=== PATIENT | female | born 1970 | race Caucasian/White ===

== ENCOUNTER 2018-05-01 18:46 | Emergency (ER) | payer OTHER, MEDICAID, SELFPAY ==
[2018-05-01 18:49] VITALS: BP 118/64; PULSE 125; RESP 22; O2SAT 99
--- NOTE | 2018-05-01 18:50 | ED_ITS ---
HPI - Allergic Reaction General Chief complaint: Allergic Reaction Stated complaint: Allergic reaction Time Seen by Provider: 05/01/18 18:50 Source: patient Mode of arrival: EMS Limitations: no limitations History of Present Illness HPI narrative: The patient has a nut allergy. She was at work when she developed allergic symptoms. She developed hoarseness, rash to the face, neck and torso, and felt like she had difficulty breathing. She took Benadryl 100 mg p.o. about 20 min prior to arrival. EMS was called, she received subcutaneous epinephrine, about 10 min prior to arrival. Upon arrival she feels her airway is doing better, but she remains worse and feels like she has tightness in the airway. But she does feel better. She is having no confusion , weakness, chest pain or nausea or vomiting. She has no recent illness. She has had several other events similar to this in her life time. She has never required intubation. Related Data Home Medications Medication Instructions Recorded Confirmed epinephrine [EpiPen 2-Montrell] 0.3 mg IM SEE INSTRUCTIONS 05/01/18 05/01/18 guaifenesin [Mucinex] 600 mg PO Q12H 05/01/18 05/01/18 Previous Rx's Medication Instructions Recorded epinephrine [EpiPen 2-Montrell] 0.3 mg IM Q10M PRN #2 each 05/01/18 prednisone 60 mg PO DAILY #15 tab 05/01/18 Allergies Allergy/AdvReac Type Severity Reaction Status Date / Time NUTS Allergy Unknown Uncoded 01/25/18 12:27 Review of Systems Review of Systems All systems reviewed & are unremarkable except as noted in HPI and below Constitutional Reports as per HPI, Denies chills, Denies fatigue and Denies fever(s) Eyes Denies eye discharge ENT Ears, Nose, Mouth, and Throat: Denies dizziness, Reports throat swelling and Denies tongue swelling Cardiovascular Denies chest pain, Reports rapid heart rate, Denies edema and Reports dyspnea Respiratory Denies chest congestion, Denies cough, Denies hemoptysis and Reports dyspnea Gastrointestinal Gastrointestinal: Denies abdominal pain, Denies nausea and Denies vomiting Musculoskeletal Denies numbness and Reports tingling Neurologic Denies dizziness, Denies numbness and Reports tingling Endocrine Denies fatigue Allergic/Immunologic Reports throat swelling and Denies tongue swelling [facility] Social History Smoking Status: Current every day smoker Exam Initial Vital Signs Initial Vital Signs: Vital Signs Pulse Rate 125 H 05/01/18 18:49 Respiratory Rate 22 05/01/18 18:49 Blood Pressure 118/64 05/01/18 18:49 Pulse Oximetry 99 05/01/18 18:49 Const General: cooperative, well developed and acute distress Nutritional Appearance: well nourished Orientation: alert, awake, oriented x3 and not confused [facility] Head: normal to inspection, normocephalic and atraumatic Face and sinus: erythema and no edema Mouth: lip normal, tongue normal and oropharynx normal (Mild edema to the oropharynx, especially the uvula.) Eyes General: appearance normal, both eyes and all related structures Neck Neck: No JVD Chest Chest: normal inspection of the chest Resp Effort & Inspection: normal respiratory effort, no audible wheezes, not labored and no use of accessory muscles Auscultation: clear to auscultation bilaterally Cardio Rate: tachycardic Rhythm: regular rhythm Heart Sounds: S1 normal and S2 normal GI Inspection: non-distended Palpation: soft, no hepatosplenomegaly and No tender Auscultation: normal bowel sounds Skin General: erythema (Noted across her face, neck, upper chest and upper back, and all extremities.) Lesions: no lesions Neuro General: alert, oriented x3, gait normal and no focal motor deficits Speech: speech normal Course Hospital Course: The patient presented with an obvious allergic reaction. She has generalized erythema. She has hoarseness, and mild airway edema. She is tachycardic, but this may reflect the epinephrine she received. She did show improvement with initial medications received prior to arrival. She was given Solu-Medrol after arrival. At the time of discharge her voice remains a little hoarse. Her vitals are stable, her heart rate is down from 120 to 87. The erythema has resolved. There we deem is almost resolved. There is a slight amount of edema left. Her lungs remain clear to auscultation. She feels well enough to go home and is requesting discharge. Orders Ordered: Discontinued Medications Methylprednisolone (Solu-Medrol 125 Mg Vial) 125 mg IV NOW ONE Stop: 05/01/18 19:18 Last Admin: 05/01/18 19:19 Dose: 125 mg Ondansetron HCl (Zofran) 4 mg IV NOW ONE Stop: 05/01/18 19:18 Last Admin: 05/01/18 19:19 Dose: 4 mg Vital Signs - 8 hr 05/01/18 18:49 05/01/18 19:30 05/01/18 20:02 Pulse Rate 125 H 85 74 Respiratory Rate 22 20 18 Blood Pressure 118/64 Blood Pressure [Left Arm] 113/76 136/66 H Pulse Oximetry 99 99 98 Discharge Plan Departure Patient Disposition: Home, Self-Care Clinical Impression: Allergic reaction Instructions: DI for Food Allergy Activity Restrictions/Additional Instructions: The Benadryl 1 tablet every 6-8 hours until your certain all symptoms have resolved. Prednisone 60 mg daily for 5 days. Return here if symptoms return. I am prescribing an EpiPen. Review instructions beforehand. Keep the [place] where you can retrieve it if needed. Be sure you understand the directions beforehand because she may need to use this very quickly. Prescriptions: New prednisone 20 mg tablet 60 mg PO DAILY Qty: 15 RF: 0 epinephrine [EpiPen 2-Montrell] 0.3 mg/0.3 mL auto-injector 0.3 mg IM Q10M PRN (Reason: hypersensitivity reaction) Qty: 2 RF: 0 No Action epinephrine [EpiPen 2-Montrell] 0.3 MG/0.3 ML auto-injector 0.3 mg IM SEE INSTRUCTIONS RF: 0 guaifenesin [Mucinex] 600 MG tablet extended release 12hr 600 mg PO Q12H RF: 0
[2018-05-01] MEDS: ONDANSETRON 4 MG/2 ML INJ IV (19:19)
[2018-05-01] MEDS: methylPREDNISolone 125 MG/2 ML VIAL IV (19:19)
[2018-05-01 19:30] VITALS: BP 113/76; PULSE 85; RESP 20; O2SAT 99
[2018-05-01 20:02] VITALS: BP 136/66; PULSE 74; RESP 18; O2SAT 98
[2018-05-01 21:13] VITALS: BP 124/74; PULSE 82; RESP 18; O2SAT 99
== END 2018-05-01 21:12 | disposition home or self-care (01) ==
PROVIDERS: Emergency Provider Emergency Medicine
DX: T78.40XA Allergy, unspecified, initial encounter (principal)
CPT/HCPCS: 93005; 96374; 96375; 99282; 99284; J2405; J2930

== ENCOUNTER → 2018-05-16 20:03 | Outpatient (CLI) | payer OTHER, MEDICAID, SELFPAY | PROVIDERS: Visit Provider Physician Assistant | DX: R52 Pain, unspecified (principal) | CPT/HCPCS: 87086 ==

== ENCOUNTER 2018-10-27 19:00 | Emergency (ER) | payer MEDICAID, SELFPAY ==
[2018-10-27 19:07] VITALS: BP 131/78; PULSE 139; RESP 17; TEMP 36.4; O2SAT 98
[2018-10-27] MEDS: methylPREDNISolone 125 MG/2 ML VIAL IV (19:12)
[2018-10-27] MEDS: FAMOTIDINE 20 MG/50 ML PIGGYBACK 200 MG IV (19:12)
--- NOTE | 2018-10-27 19:15 | ED.ALLEREA ---
HPI - Allergic Reaction <ARIN Pérez Last Filed: 10/27/18 21:48> General Chief complaint: Allergic Reaction Stated complaint: Allergic Reaction Time Seen by Provider: 10/27/18 19:10 Source: patient Mode of arrival: EMS Limitations: no limitations History of Present Illness HPI narrative: This 48-year-old female comes to ED via EMS due to allergic reaction. She was dining out at a local restaurant and thinks she was exposed to an allergen such as sesame (allergic to this and all tree nuts). She states that she started to feel facial and lip swelling, tight in the chest and short of breath. She had EpiPen with her and that was injected. She had 50 mg of Benadryl EN route. She is feeling very shaky now, thinks due to epinephrine. She states that her skin is crawling. She does not feel like her face is swollen now, shortness of breath is better, main complaint is itching all over Related Data Home Medications Medication Instructions Recorded Confirmed epinephrine [EpiPen 2-Montrell] 0.3 mg IM SEE INSTRUCTIONS 05/01/18 05/01/18 guaifenesin [Mucinex] 600 mg PO Q12H 05/01/18 05/01/18 Previous Rx's Medication Instructions Recorded epinephrine [EpiPen 2-Montrell] 0.3 mg IM Q10M PRN #2 each 05/01/18 prednisone 60 mg PO DAILY #15 tab 05/01/18 epinephrine [EpiPen 2-Montrell] 0.3 mg IM Q10M PRN #1 each 10/27/18 Allergies Allergy/AdvReac Type Severity Reaction Status Date / Time sesame seed Allergy Severe Anaphylaxis Verified 05/16/18 15:39 NUTS Allergy Unknown Uncoded 01/25/18 12:27 Review of Systems <ARIN Pérez Last Filed: 10/27/18 21:48> Review of Systems ROS Unobtainable: All systems reviewed & are unremarkable except as noted in HPI and below Exam <Sravani Terry PA-C - Last Filed: 10/27/18 21:48> Narrative Exam Narrative: GENERAL APPEARANCE: Patient restless, in NAD, scratching HEENT: PERRL, EOMI, normal oropharynx, no lip swelling NECK: Supple, no masses LUNGS: Clear to auscultation bilaterally. HEART: Rate and rhythm regular without murmur, normal S1 and S2, no S3 or S4. DERMATOLOGIC: Patchy erythema Initial Vital Signs Initial Vital Signs: Vital Signs Temperature 97.6 F 10/27/18 19:07 Pulse Rate 139 H 10/27/18 19:07 Respiratory Rate 17 10/27/18 19:07 Blood Pressure 131/78 10/27/18 19:07 Pulse Oximetry 98 10/27/18 19:07 <Peter Llamas DO - Last Filed: 10/28/18 01:45> Initial Vital Signs Initial Vital Signs: Vital Signs Temperature 97.6 F 10/27/18 19:07 Pulse Rate 139 H 10/27/18 19:07 Respiratory Rate 17 10/27/18 19:07 Blood Pressure 131/78 10/27/18 19:07 Pulse Oximetry 98 10/27/18 19:07 Course <Sravani Terry PA-C - Last Filed: 10/27/18 21:48> Additional Information: Prior to discharge patient states that she is feeling completely back to normal. Skin redness has resolved and she no longer has itching. She has no facial swelling, dyspnea or wheeze. She states this reaction is much less severe than the 1 she had last time she was here. She does not want to take oral steroids and states that she only took a few doses last time because they make her very anxious and she states that she almost got fired from her job. These do not appear needed for this particular episode, but I did caution her that she must return should she start to have any worsening symptoms again and she is agreeable Orders Ordered: Discontinued Medications Famotidine (Pepcid) 20 mg in 50 mls @ 200 mls/hr IV NOW ONE Stop: 10/27/18 19:25 Last Infusion: 10/27/18 19:46 Dose: 200 mls/hr Admin: 10/27/18 19:12 Dose: 200 mls/hr Methylprednisolone (Solu-Medrol 125 Mg Vial) 125 mg IV NOW ONE Stop: 10/27/18 19:12 Last Admin: 10/27/18 19:12 Dose: 125 mg Vital Signs - 8 hr 10/27/18 19:07 10/27/18 20:17 10/27/18 20:40 Temperature 97.6 F Pulse Rate 139 H 84 95 H Respiratory Rate 17 15 14 Blood Pressure 131/78 Blood Pressure [Left Arm] 113/60 118/78 Pulse Oximetry 98 97 97 10/27/18 21:27 Temperature Pulse Rate 89 Respiratory Rate 17 Blood Pressure Blood Pressure [Left Arm] 109/61 Pulse Oximetry 96 <Peter Llamas DO - Last Filed: 10/28/18 01:45> Orders Ordered: Discontinued Medications Famotidine (Pepcid) 20 mg in 50 mls @ 200 mls/hr IV NOW ONE Stop: 10/27/18 19:25 Last Infusion: 10/27/18 19:46 Dose: 200 mls/hr Admin: 10/27/18 19:12 Dose: 200 mls/hr Methylprednisolone (Solu-Medrol 125 Mg Vial) 125 mg IV NOW ONE Stop: 10/27/18 19:12 Last Admin: 10/27/18 19:12 Dose: 125 mg Vital Signs - 8 hr 10/27/18 19:07 10/27/18 20:17 10/27/18 20:40 Temperature 97.6 F Pulse Rate 139 H 84 95 H Respiratory Rate 17 15 14 Blood Pressure 131/78 Blood Pressure [Left Arm] 113/60 118/78 Pulse Oximetry 98 97 97 10/27/18 21:27 Temperature Pulse Rate 89 Respiratory Rate 17 Blood Pressure Blood Pressure [Left Arm] 109/61 Pulse Oximetry 96 Discharge Plan Departure Patient Disposition: Home Clinical Impression: Anaphylaxis Discharge Date/Time: 10/27/18 21:50 Interventions: ED Discharge Assessment Last Done: 10/27/18 21:50 Instructions: DI for Anaphylaxis Activity Restrictions/Additional Instructions: Please return as we talked about if you have any acutely worsening symptoms again. It seems that your itching has resolved, but if you do need additional Benadryl later this evening or in the morning, it is okay to take. Please refill your epi pen so you always have an extra on hand. Prescriptions: New epinephrine [EpiPen 2-Montrell] 0.3 mg/0.3 mL auto-injector 0.3 mg IM Q10M PRN (Reason: nut allergy/anaphylaxis) Qty: 1 RF: 0 No Action epinephrine [EpiPen 2-Montrell] 0.3 MG/0.3 ML auto-injector 0.3 mg IM SEE INSTRUCTIONS RF: 0 guaifenesin [Mucinex] 600 MG tablet extended release 12hr 600 mg PO Q12H RF: 0 prednisone 20 mg tablet 60 mg PO DAILY Qty: 15 RF: 0 epinephrine [EpiPen 2-Montrell] 0.3 mg/0.3 mL auto-injector 0.3 mg IM Q10M PRN (Reason: hypersensitivity reaction) Qty: 2 RF: 0 <Peter Llamas, DO - Last Filed: 10/28/18 01:45> Cosign ED Attending Madeline Attestation: I was immediately available in the department for consultation. Documentation has been reviewed. I agree with assessment and plan.
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
[2018-10-27 20:17] VITALS: BP 113/60; PULSE 84; RESP 15; O2SAT 97
[2018-10-27 20:40] VITALS: BP 118/78; PULSE 95; RESP 14; O2SAT 97
[2018-10-27 21:27] VITALS: BP 109/61; PULSE 89; RESP 17; O2SAT 96
== END 2018-10-27 21:50 | disposition home or self-care (01) ==
PROVIDERS: Emergency Provider Internal Medicine
DX: T78.2XXA Anaphylactic shock, unspecified, initial encounter (principal)
CPT/HCPCS: 96365; 96375; 99283; 99284; J2930

== ENCOUNTER 2019-01-08 17:02 | Emergency (ER) | payer OTHER, MEDICAID, SELFPAY ==
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
[2019-01-08 17:09] VITALS: BP 134/95; PULSE 105; RESP 20; O2SAT 97
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
--- NOTE | 2019-01-08 17:11 | PC.NURSE ---
C collar applied when received the patient
[2019-01-08 17:13] VITALS: BP 134/95; PULSE 105; RESP 20; TEMP 36.1; O2SAT 97
[2019-01-08 17:33] LABS: Add Manual Diff / Slide Review NO; Basophils Absolute Auto 0 /uL (0-100); Basophils Percent Auto 0.5 % (0-2); Eosinophils Absolute Auto 100 /uL (0-450); Eosinophils Percent Auto 0.7 % (2-4); Hematocrit 43.5 % (36-46); Hemoglobin 14.5 g/dL (12.0-16.0); Lymphocytes Absolute Auto 2300 /uL (1100-4500); Lymphocytes Percent Auto 24.8 % (25-40); Mean Corpuscular HGB Conc 33.4 % (30-36); Mean Corpuscular Hemoglobin 33.6 PG (26-34); Mean Corpuscular Volume 100.8 fL (80-100); Monocytes Absolute Auto 400 /uL (0-900); Monocytes Percent Auto 3.9 % (3-14); Neutrophils Absolute Auto 6500 /uL (1500-7000); Neutrophils Percent Auto 70.1 % (50-75); Platelet Count 195 X10^3/uL (150-400); Red Blood Cell Count 4.32 X10^6/uL (4.0-5.2); White Blood Cell Count 9.3 X10^3/uL (4.5-11.0)
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
[2019-01-08 17:40] LABS: INR 0.9 (0.9-1.3); Prothrombin Time 10.7 SECONDS (10.1-12.7)
[2019-01-08 17:42] LABS: PTT Partial Thromboplastin Tim 29 SECONDS (26.4-36.2)
[2019-01-08 17:44] LABS: Bacteria Urine None Seen; WBC Urine None Seen (0-5/HPF)
[2019-01-08 17:55] LABS: Alanine Aminotransferase 30 IU/L (9-52); Albumin 4.5 g/dL (3.5-5.0); Albumin Globulin Ratio 1.4 (1.0-2.8); Alkaline Phosphatase 83 U/L (38-126); Amylase 86 U/L (30-110); Aspartate Aminotransferase 33 IU/L (14-36); BUN Creatinine Ratio 17.1 (6-22); Bilirubin Total 0.4 mg/dL (0.2-1.3); Blood Urea Nitrogen 12 mg/dL (7-17); Calcium 9.1 mg/dL (8.4-10.2); Carbon Dioxide 27 mmol/L (22-32); Chloride 109 mmol/L (98-107); Estimated Glomerular Filt Rate > 60.0 mL/min (>60); Globulin 3.3 g/dL (1.7-4.1); Glucose 97 mg/dL (70-100); HEMOLYSIS 23 (0-50); Lipase 148 U/L (23-300); Potassium 3.6 mmol/L (3.4-5.1); Sodium 144 mmol/L (137-145); Total Protein 7.8 g/dL (6.3-8.2)
[2019-01-08 18:00] VITALS: BP 120/68; PULSE 90; RESP 14; O2SAT 99
[2019-01-08 18:03] LABS: Appearance Urine UA CLEAR; Bilirubin Urine UA NEGATIVE (NEGATIVE); Color Urine UA YELLOW; Glucose Urine UA NEGATIVE (Negative); Ketones Urine UA NEGATIVE (NEGATIVE); Leukocyte Esterase Urine UA NEGATIVE (NEGATIVE); Nitrite Urine UA NEGATIVE (Negative); Occult Blood Urine UA TRACE-LYSED (Negative); Protein Urine UA NEGATIVE (Negative); Specific Gravity Urine UA <=1.005 (1.000-1.035); Urobilinogen Urine UA 0.2 E.U./dL (0.2); pH Urine UA 6.5 (4.5-8.0)
[2019-01-08 18:14] LABS: RBC Urine 1-5/HPF (0-5/HPF)
[2019-01-08 18:31] LABS: Ethanol (ETOH) 293 mg/dL
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
== END 2019-01-08 19:17 | disposition home or self-care (01) ==
PROVIDERS: Emergency Provider Nurse Practitioner Family
DX: S00.81XA Abrasion of other part of head, initial encounter (principal); S60.222A Contusion of left hand, initial encounter; S02.5XXA Fracture of tooth (traumatic), initial encounter for closed fracture; S06.0X0A Concussion without loss of consciousness, initial encounter; F10.920 Alcohol use, unspecified with intoxication, uncomplicated; V29.9XXA Motorcycle rider (driver) (passenger) injured in unspecified traffic accident, initial encounter
CPT/HCPCS: 70450; 70486; 71045; 71260; 72125; 73130; 74177; 80053; 80320; 81001; 82150; 83690; 85025; 85610; 85730; 86850; 86900; 86901; 93005; 99283; 99285

== ENCOUNTER 2019-04-08 18:43 | Emergency (ER) | payer MEDICAID, SELFPAY ==
[2019-04-08 18:40] VITALS: BP 128/82; PULSE 65; RESP 14; TEMP 36.6; O2SAT 95
--- NOTE | 2019-04-08 18:59 | ED_ITS ---
HPI - Alcohol General Chief Complaint: Toxicology Problem Stated Complaint: ETOH Time Seen by Provider: 04/08/19 18:51 Source: patient Mode of arrival: ambulatory Limitations: no limitations History of Present Illness HPI narrative: patient is a 48-year-old female who presents intoxicated. 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 Apparently and a [employer] called EMS for transport to the emergency department. She does have some scratches on her legs but no other signs of trauma. She states her [place] that. She denies drinking every day. She also admits to smoking marijuana about 12 hr ago but denies any other illicit drugs. Apparently her mother is sick and she has been drinking alcohol. She denies any suicidal or homicidal ideations. She states she does not intend to harm herself. MD complaint: alcohol intoxication Last drink: just prior to this admission Related Data Home Medications Medication Instructions Recorded Confirmed guaifenesin [Mucinex] 600 mg PO Q12H 05/01/18 05/01/18 Previous Rx's Medication Instructions Recorded prednisone 60 mg PO DAILY #15 tab 05/01/18 epinephrine [EpiPen 2-Montrell] 0.3 mg IM Q10M PRN #1 each 10/27/18 Allergies Allergy/AdvReac Type Severity Reaction Status Date / Time sesame seed Allergy Severe Anaphylaxis Verified 04/08/19 18:51 NUTS Allergy Unknown Uncoded 01/08/19 17:08 Review of Systems Review of Systems ROS Unobtainable: All systems reviewed & are unremarkable except as noted in HPI and below Constitutional Denies chills, Denies fever(s), Denies lethargy and Denies weakness Eyes Denies change in vision, Denies eye discharge, Denies irritation and Denies loss of vision ENT Ears, Nose, Mouth, and Throat: Denies change in voice, Denies neck pain and Denies sore throat Cardiovascular Denies chest pain, Denies irregular heart rhythm, Denies lightheadedness, Denies palpitations, Denies dyspnea, Denies dyspnea on exertion and Denies orthopnea Respiratory Denies cough, Denies dyspnea, Denies dyspnea on exertion and Denies wheezing Musculoskeletal Denies neck pain Integumentary/Breasts Denies pruritus, Denies erythema, Denies rash and Denies wounds Neurologic Denies confusion, Denies loss of vision and Denies weakness Psychiatric Denies anxiety, Denies confusion, Denies depression, Denies homicidal ideation and Denies suicidal ideation Endocrine Denies palpitations Allergic/Immunologic Denies wheezing [facility] Medical History (Updated 04/08/19 @ 20:30 by Ami Joiner DO) Anaphylaxis (Resolved) Family History Other Family history non-contributory Social History Smoking Status: Former smoker Family History Other Family history non-contributory Social History Smoking Status: Former smoker Exam Initial Vital Signs Initial Vital Signs: Vital Signs Temperature 97.8 F 04/08/19 18:40 Pulse Rate 65 04/08/19 18:40 Respiratory Rate 14 04/08/19 18:40 Blood Pressure 128/82 04/08/19 18:40 Pulse Oximetry 95 04/08/19 18:40 GENERAL: Intoxicated slurring speech HEENT: Head atraumatic, no abrasions no crepitations,EOMI, pupils reactive, face symmetric, neck is supple CARDIOVASCULAR: Regular rate and rhythm without murmurs, rubs or gallops. RESPIRATORY: Breath sounds equal bilaterally, no wheezes rales or rhonchi. ABDOMEN: Soft, nontender. Normoactive bowel sounds all 4 quadrants. No guarding or rebound. EXTREMITIES: Normal range of motion, no clubbing or edema. Neurovascularly intact NEUROLOGICAL: Alert and oriented x3 moving all extremities slurred speech SKIN: superficial scratches on both legs no other sign of trauma no abrasions lacerations Course Orders Ordered: ED Orders 04/08/19 19:20 Urinalysis Sreen (Dip Only) Stat Urine Drug Screen, Rapid Stat 04/08/19 19:45 Acetaminophen Stat Complete Blood Count AUTO DIFF Stat Comprehensive Metabolic Panel Stat Ethanol (ETOH) Stat Hepatic (Liver) Panel Stat Lipase Stat Magnesium Stat Salicylate Stat Vital Signs - 8 hr 04/08/19 18:40 04/08/19 20:20 Temperature 97.8 F Pulse Rate 65 71 Respiratory Rate 14 15 Blood Pressure 128/82 Blood Pressure [Right Arm] 118/71 Pulse Oximetry 95 98 MDM - Alcohol Lab Data Attestation: I reviewed the patient's lab results. Result diagrams: 04/08/19 19:45 04/08/19 19:45 Labs: Lab Results 04/08/19 04/08/19 04/08/19 Range/Units 19:20 19:20 19:45 WBC 7.1 (4.5-11.0) X10^3/uL RBC 4.09 (4.0-5.2) X10^6/uL Hgb 13.6 (12.0-16.0) g/dL Hct 40.9 (36-46) % MCV 99.9 (80-100) fL MCH 33.3 (26-34) PG MCHC 33.4 (30-36) % RDW 13.9 (11.6-14.8) % Plt Count 169 (150-400) X10^3/uL Neut % (Auto) 64.2 (50-75) % Lymph % (Auto) 30.4 (25-40) % Lucas % (Auto) 4.0 (3-14) % Eos % (Auto) 0.8 L (2-4) % Baso % (Auto) 0.6 (0-2) % Neut # (Auto) 4500 (4918-6877) /uL Lymph # (Auto) 2200 (0595-9426) /uL Lucas # (Auto) 300 (0-900) /uL Eos # (Auto) 100 (0-450) /uL Baso # (Auto) 0 (0-100) /uL Sodium (137-145) mmol/L Potassium (3.4-5.1) mmol/L Chloride (98-107) mmol/L Carbon Dioxide (22-32) mmol/L BUN (7-17) mg/dL Creatinine (0.52-1.04) mg/dL Estimated GFR (>60) mL/min BUN/Creatinine Ratio (6-22) Glucose (70-100) mg/dL Calcium (8.4-10.2) mg/dL Magnesium (1.6-2.3) mg/dL Total Bilirubin (0.2-1.3) mg/dL Conjugated Bilirubin (0.0-0.3) md/dL Unconjugated Bilirubin (0.0-1.1) mg/dL AST (14-36) IU/L ALT (9-52) IU/L Alkaline Phosphatase (38-126) U/L Total Protein (6.3-8.2) g/dL Albumin (3.5-5.0) g/dL Globulin (1.7-4.1) g/dL Albumin/Globulin Ratio (1.0-2.8) Lipase (23-300) U/L Urine Color Yellow Urine Appearance Clear Urine pH 7.0 (4.5-8.0) Ur Specific [place] <=1.005 (1.000-1.035) Urine Protein Negative (Negative) Urine Glucose (UA) Negative (Negative) g/dL Urine Ketones Negative (NEGATIVE) Urine Occult Blood 1+ H (Negative) Urine Nitrate Negative (Negative) Urine Bilirubin Negative (NEGATIVE) Urine Urobilinogen 0.2 (0.2) E.U./dL Ur Leukocyte Esterase Negative (NEGATIVE) Salicylates (<20) mg/dL Urine Opiates Screen Negative (Negative) Ur Oxycodone Screen Negative (Negative) Urine Methadone Screen Negative (Negative) Acetaminophen (10-30) ug/mL Ur Barbiturates Screen Negative (Negative) U Tricyclic Antidepress Negative (Negative) Ur Phencyclidine Scrn Negative (Negative) Ur Amphetamines Screen Negative (Negative) U Methamphetamines Scrn Negative (Negative) Ur MDMA Scrn (Ecstasy) Negative (Negative) U Benzodiazepines Scrn Negative (Negative) Urine Cocaine Screen Negative (Negative) U Marijuana (THC) Screen Positive H (Negative) Ethyl Alcohol mg/dL 04/08/19 Range/Units 19:45 WBC (4.5-11.0) X10^3/uL RBC (4.0-5.2) X10^6/uL Hgb (12.0-16.0) g/dL Hct (36-46) % MCV (80-100) fL MCH (26-34) PG MCHC (30-36) % RDW (11.6-14.8) % Plt Count (150-400) X10^3/uL Neut % (Auto) (50-75) % Lymph % (Auto) (25-40) % Lucas % (Auto) (3-14) % Eos % (Auto) (2-4) % Baso % (Auto) (0-2) % Neut # (Auto) (5969-8632) /uL Lymph # (Auto) (0368-9190) /uL Lucas # (Auto) (0-900) /uL Eos # (Auto) (0-450) /uL Baso # (Auto) (0-100) /uL Sodium 147 H (137-145) mmol/L Potassium 3.7 (3.4-5.1) mmol/L Chloride 112 H (98-107) mmol/L Carbon Dioxide 31 (22-32) mmol/L BUN 9 (7-17) mg/dL Creatinine 0.70 (0.52-1.04) mg/dL Estimated GFR > 60.0 (>60) mL/min BUN/Creatinine Ratio 12.9 (6-22) Glucose 102 H (70-100) mg/dL Calcium 9.0 (8.4-10.2) mg/dL Magnesium 2.0 (1.6-2.3) mg/dL Total Bilirubin 0.5 (0.2-1.3) mg/dL Conjugated Bilirubin 0.0 (0.0-0.3) md/dL Unconjugated Bilirubin 0.3 (0.0-1.1) mg/dL AST 30 (14-36) IU/L ALT 23 (9-52) IU/L Alkaline Phosphatase 87 (38-126) U/L Total Protein 6.9 (6.3-8.2) g/dL Albumin 4.0 (3.5-5.0) g/dL Globulin 2.9 (1.7-4.1) g/dL Albumin/Globulin Ratio 1.4 (1.0-2.8) Lipase 99 (23-300) U/L Urine Color Urine Appearance Urine pH (4.5-8.0) Ur Specific [place] (1.000-1.035) Urine Protein (Negative) Urine Glucose (UA) (Negative) g/dL Urine Ketones (NEGATIVE) Urine Occult Blood (Negative) Urine Nitrate (Negative) Urine Bilirubin (NEGATIVE) Urine Urobilinogen (0.2) E.U./dL Ur Leukocyte Esterase (NEGATIVE) Salicylates < 1.0 (<20) mg/dL Urine Opiates Screen (Negative) Ur Oxycodone Screen (Negative) Urine Methadone Screen (Negative) Acetaminophen < 10 L (10-30) ug/mL Ur Barbiturates Screen (Negative) U Tricyclic Antidepress (Negative) Ur Phencyclidine Scrn (Negative) Ur Amphetamines Screen (Negative) U Methamphetamines Scrn (Negative) Ur MDMA Scrn (Ecstasy) (Negative) U Benzodiazepines Scrn (Negative) Urine Cocaine Screen (Negative) U Marijuana (THC) Screen (Negative) Ethyl Alcohol 266 mg/dL MDM Narrative Medical decision making narrative: Patient has no real sign of trauma. She is ambulatory in the ED gait be some steady year. Now requesting to go home. She has called a [employer], her daughter who is not able to drive or ride in a taxicab pick her up and they will go home. Daughter came to the ER patient had a steady gait and walk to the cab Discharge Plan Departure Patient Disposition: Home Clinical Impression: Alcoholic intoxication Qualifiers: Complication of substance-induced condition: uncomplicated Qualified Code(s): F10.920 - Alcohol use, unspecified with intoxication, uncomplicated Discharge Date/Time: 04/08/19 21:13 Interventions: ED Discharge Assessment Last Done: 04/08/19 21:12 Instructions: DI for Alcohol Abuse Activity Restrictions/Additional Instructions: *You have been diagnosed with alcohol intoxication *What to do: Stop drinking alcohol *Continue to take medications as directed *Follow up with your primary care provider in 2-3 days *Return to ER if you should have any new, worsening or concerning symptoms Prescriptions: No Action guaifenesin [Mucinex] 600 MG tablet extended release 12hr 600 mg PO Q12H RF: 0 prednisone 20 mg tablet 60 mg PO DAILY Qty: 15 RF: 0 epinephrine [EpiPen 2-Montrell] 0.3 mg/0.3 mL auto-injector 0.3 mg IM Q10M PRN (Reason: nut allergy/anaphylaxis) Qty: 1 RF: 0 Referrals: [facility] [Outside]
[2019-04-08 19:31] LABS: Appearance Urine UA CLEAR; Bilirubin Urine UA NEGATIVE (NEGATIVE); Color Urine UA YELLOW; Glucose Urine UA NEGATIVE (Negative); Ketones Urine UA NEGATIVE (NEGATIVE); Leukocyte Esterase Urine UA NEGATIVE (NEGATIVE); Nitrite Urine UA NEGATIVE (Negative); Occult Blood Urine UA 1+ (Negative); Protein Urine UA NEGATIVE (Negative); Specific Gravity Urine UA <=1.005 (1.000-1.035); Urobilinogen Urine UA 0.2 E.U./dL (0.2)
[2019-04-08 19:33] LABS: Urine Amphetamines Negative (Negative); Urine Barbiturates Negative (Negative); Urine Benzodiazepines Negative (Negative); Urine Cocaine Negative (Negative); Urine MDMA Negative (Negative); Urine Methadone Negative (Negative); Urine Methamphetamines Negative (Negative); Urine Morphine/Opi cutoff 2000 Negative (Negative); Urine Oxycodone Negative (Negative); Urine Phencyclidine Negative (Negative); Urine Tetrahydrocannabinol Positive (Negative); Urine Tricyclic Antidepressant Negative (Negative)
[2019-04-08 19:56] LABS: Add Manual Diff / Slide Review NO; Basophils Absolute Auto 0 /uL (0-100); Basophils Percent Auto 0.6 % (0-2); Eosinophils Absolute Auto 100 /uL (0-450); Eosinophils Percent Auto 0.8 % (2-4); Hematocrit 40.9 % (36-46); Hemoglobin 13.6 g/dL (12.0-16.0); Lymphocytes Absolute Auto 2200 /uL (1100-4500); Lymphocytes Percent Auto 30.4 % (25-40); Mean Corpuscular HGB Conc 33.4 % (30-36); Mean Corpuscular Hemoglobin 33.3 PG (26-34); Mean Corpuscular Volume 99.9 fL (80-100); Monocytes Absolute Auto 300 /uL (0-900); Neutrophils Absolute Auto 4500 /uL (1500-7000); Neutrophils Percent Auto 64.2 % (50-75); Platelet Count 169 X10^3/uL (150-400); Red Blood Cell Count 4.09 X10^6/uL (4.0-5.2); Red Cell Distribution Width 13.9 % (11.6-14.8); White Blood Cell Count 7.1 X10^3/uL (4.5-11.0)
[2019-04-08 20:08] LABS: Acetaminophen < 10 ug/mL (10-30); Alanine Aminotransferase 23 IU/L (9-52); Albumin Globulin Ratio 1.4 (1.0-2.8); Alkaline Phosphatase 87 U/L (38-126); Aspartate Aminotransferase 30 IU/L (14-36); BUN Creatinine Ratio 12.9 (6-22); Bilirubin Total 0.5 mg/dL (0.2-1.3); Bilirubin Unconjugated 0.3 mg/dL (0.0-1.1); Blood Urea Nitrogen 9 mg/dL (7-17); Carbon Dioxide 31 mmol/L (22-32); Chloride 112 mmol/L (98-107); Estimated Glomerular Filt Rate > 60.0 mL/min (>60); Ethanol (ETOH) 266 mg/dL; Globulin 2.9 g/dL (1.7-4.1); Glucose 102 mg/dL (70-100); HEMOLYSIS < 15 (0-50); Lipase 99 U/L (23-300); Potassium 3.7 mmol/L (3.4-5.1); Salicylate < 1.0 mg/dL (<20); Sodium 147 mmol/L (137-145); Total Protein 6.9 g/dL (6.3-8.2)
[2019-04-08 20:20] VITALS: BP 118/71; PULSE 71; RESP 15; O2SAT 98
== END 2019-04-08 21:13 | disposition home or self-care (01) ==
LOC: ED 21:21
PROVIDERS: Emergency Provider Emergency Medicine
DX: F10.920 Alcohol use, unspecified with intoxication, uncomplicated (principal)
CPT/HCPCS: 36415; 80053; 80076; 80305; 80320; 80329; 81003; 83690; 83735; 85025; 99283; G0480

== ENCOUNTER 2019-08-06 12:25 | Emergency (ER) | payer OTHER, MEDICAID, SELFPAY ==
[2019-08-06 13:06] VITALS: BP 159/99; PULSE 77; RESP 13; TEMP 36.2; O2SAT 99
--- NOTE | 2019-08-06 13:23 | DI.RAD.S_ITS ---
PROCEDURE: XR HIP W PEL IF DONE RT 2V INDICATIONS: fell down 13 steps, point tender over sacrum and right hip. TECHNIQUE: AP pelvis with lateral view(s) of the right hip(s). COMPARISON: None. FINDINGS: Bones: No fractures or dislocations. Pelvic ring appears intact. No suspicious bony lesions. Soft tissues: The visualized bowel gas pattern is normal. No suspicious soft tissue calcifications. IMPRESSION: No visualized acute fracture or dislocation. However, if clinical concern and/or pain persist, short interval imaging followup in 7-10 days is recommended, as occult injury cannot be definitively excluded. Dictated by: Tamra Baxter M.D. on 08/06/2019 at 14:11 Approved by: Tamra Baxter M.D. on 08/06/2019 at 14:15
--- NOTE | 2019-08-06 13:23 | DI.RAD.S_ITS ---
PROCEDURE: XR SACRUM COCCYX MIN 2V INDICATIONS: fell down 13 steps, point tender over sacrum and right hip. TECHNIQUE: 3 views of the sacrum and coccyx acquired. COMPARISON: [facility], CR, XR HIP W PEL IF DONE RT 2V, 08/06/2019, 13:53. FINDINGS: Bones: No fractures or dislocations. No suspicious bony lesions. Soft tissues: Visualized bowel gas pattern is normal. No suspicious soft tissue densities. IMPRESSION: No visualized acute fracture or dislocation. However, if clinical concern and/or pain persist, short interval imaging followup in 7-10 days is recommended, as occult injury cannot be definitively excluded. Dictated by: Tamra Baxter M.D. on 08/06/2019 at 14:15 Approved by: Tamra Baxter M.D. on 08/06/2019 at 14:16
[2019-08-06] MEDS: HYDROCODONE/ACET 5/325 TABLET 2 TAB PO (13:28)
[2019-08-06 13:38] LABS: Add Manual Diff / Slide Review NO; Basophils Absolute Auto 0 /uL (0-100); Basophils Percent Auto 0.5 % (0-2); Eosinophils Absolute Auto 100 /uL (0-450); Eosinophils Percent Auto 0.9 % (2-4); Hematocrit 38.3 % (36-46); Hemoglobin 12.8 g/dL (12.0-16.0); Lymphocytes Absolute Auto 1600 /uL (1100-4500); Lymphocytes Percent Auto 18.6 % (25-40); Mean Corpuscular HGB Conc 33.4 % (30-36); Mean Corpuscular Hemoglobin 34.5 PG (26-34); Mean Corpuscular Volume 103.3 fL (80-100); Monocytes Absolute Auto 500 /uL (0-900); Monocytes Percent Auto 5.6 % (3-14); Neutrophils Absolute Auto 6200 /uL (1500-7000); Neutrophils Percent Auto 74.4 % (50-75); Platelet Count 181 X10^3/uL (150-400); Red Blood Cell Count 3.71 X10^6/uL (4.0-5.2); Red Cell Distribution Width 15.1 % (11.6-14.8); White Blood Cell Count 8.4 X10^3/uL (4.5-11.0)
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
[2019-08-06 13:49] LABS: BUN Creatinine Ratio 23.3 (6-22); Blood Urea Nitrogen 14 mg/dL (7-17); Calcium 9.7 mg/dL (8.4-10.2); Carbon Dioxide 27 mmol/L (22-32); Chloride 103 mmol/L (98-107); Creatine Kinase 76 U/L (30-135); Estimated Glomerular Filt Rate > 60.0 mL/min (>60); Glucose 119 mg/dL (70-100); HEMOLYSIS < 15 (0-50); Potassium 4.3 mmol/L (3.4-5.1); Sodium 137 mmol/L (137-145)
[2019-08-06 13:58] LABS: Ethanol (ETOH) < 10 mg/dL
--- NOTE | 2019-08-06 15:44 | ED.FALL ---
HPI - Fall <NATANAEL Wheeler - Last Filed: 08/06/19 20:13> General Chief Complaint: Fall Stated Complaint: lump on right side buttocks Time Seen by Provider: 08/06/19 13:27 Source: patient Mode of arrival: Ambulatory Limitations: no limitations History of Present Illness HPI Narrative: The patient is a 49-year-old female former smoker with history of excessive drinking who presents with a chief complaint of pain after a fall down stairs. She states that she fell down 13 stairs 15 days ago. That she is out of the modified trauma window of her trauma. She ambulates into the emergency department. She was sent from the walk-in clinic for excessive bruising and a mass on her buttock. She has been using Tylenol and Motrin for pain. Denies any incontinence of bowel, incontinence of bladder or saddle anesthesia. Related Data Previous Rx's Medication Instructions Recorded epinephrine [EpiPen 2-Montrell] 0.3 mg IM Q10M PRN #1 each 10/27/18 hydrocodone-acetaminophen [Vernon] 1 tab PO Q4-6H PRN #7 tab 08/06/19 ketorolac 10 mg PO TID PRN #15 tab 08/06/19 Allergies Allergy/AdvReac Type Severity Reaction Status Date / Time sesame seed Allergy Severe Anaphylaxis Verified 08/06/19 10:59 NUTS Allergy Unknown Uncoded 01/08/19 17:08 Review of Systems <NATANAEL Wheeler - Last Filed: 08/06/19 20:13> Review of Systems Narrative: GENERAL: Denies chills, fatigue, malaise, fever, sweats. HEENT: Denies sinus pain, ear pain, sore throat, difficulty swallowing, dizziness. RESPIRATORY: Denies dyspnea, cough, wheezing, hemoptysis, sputum. CARDIOVASCULAR: Denies chest pain, palpitations, orthopnea, edema, GASTROINTESTINAL: Denies nausea, vomiting, abdominal pain, diarrhea, constipation, melena. : Denies dysuria, frequency, incontinence, hematuria, urinary retention. MUSCULOSKELETAL: See HPI SKIN: See HPI NEUROLOGIC: Denies weakness, headache, numbness, change in speech, confusion, seizures, incoordination. PSYCHIATRIC: No concerning psychosocial issues. 12 point review of systems is negative except for those stated above Patient History <NATANAEL Wheeler - Last Filed: 08/06/19 20:13> Medical History (Updated 08/06/19 @ 15:49 by SANDRO Wheeler) Anaphylaxis (Resolved) Social History Smoking Status: Former smoker alcohol intake frequency: 0-2 drinks per day Substance Use Type: marijuana Exam <SANDRO Wheeler - Last Filed: 08/06/19 20:13> Narrative Exam Narrative: GENERAL: This is a well-nourished, well-developed patient, appears uncomfortable HEAD: Atraumatic. Normocephalic. No temporal or scalp tenderness. EYES: Pupils equal round and reactive. Extraocular motions intact. No scleral icterus. No injection or drainage. ENT: Nose without bleeding, purulent drainage or septal hematoma. Throat without erythema, tonsillar hypertrophy or exudate. Uvula midline. Airway patent. NECK: Trachea midline. No JVD or lymphadenopathy. Supple, nontender, no meningeal signs. CARDIOVASCULAR: Regular rate and rhythm RESPIRATORY: Clear to auscultation. Breath sounds equal bilaterally. No wheezes, rales, or rhonchi. No increased respiratory effort. No accessory muscle use. GASTROINTESTINAL: Abdomen soft, non-tender, nondistended. No hepato-splenomegaly, or palpable masses. No guarding. EXTREMITIES: Patient has diffuse ecchymosis over bilateral buttocks, radiating down both thighs. She has a palpable mass on her right clot talk.. No abrasion. No lacerations noted. BACK: No pain to C T or L spine palpation. Pain to palpation of coccyx and sacrum. NEURO: AOx3. Around the room. Stable gait. Strength is equal upper and lower extremities bilaterally. SKIN: See extremity exam Initial Vital Signs Initial Vital Signs: Vital Signs Temperature 97.2 F L 08/06/19 13:06 Pulse Rate 77 08/06/19 13:06 Respiratory Rate 13 08/06/19 13:06 Blood Pressure 159/99 H 08/06/19 13:06 Pulse Oximetry 99 08/06/19 13:06 <Maciej Montero DO - Last Filed: 08/09/19 06:57> Initial Vital Signs Initial Vital Signs: Vital Signs Temperature 97.2 F L 08/06/19 13:06 Pulse Rate 77 08/06/19 13:06 Respiratory Rate 13 08/06/19 13:06 Blood Pressure 159/99 H 08/06/19 13:06 Pulse Oximetry 99 08/06/19 13:06 Course <SANDRO Wheeler - Last Filed: 08/06/19 20:13> Orders Ordered: Discontinued Medications Hydrocodone Bitart/Acetaminophen (Vernon 5/325) 2 tab PO NOW ONE Stop: 08/06/19 13:25 Last Admin: 08/06/19 13:28 Dose: 2 tab Documented by: TOMASA Vital Signs Vital signs: Vital Signs - 8 hr 08/06/19 13:06 08/06/19 15:56 Temperature 97.2 F L Pulse Rate 77 64 Respiratory Rate 13 16 Blood Pressure 159/99 H Blood Pressure [Right Arm] 156/101 H Pulse Oximetry 99 98 <Maciej Montero DO - Last Filed: 08/09/19 06:57> Orders Ordered: Discontinued Medications Hydrocodone Bitart/Acetaminophen (Vernon 5/325) 2 tab PO NOW ONE Stop: 08/06/19 13:25 Last Admin: 08/06/19 13:28 Dose: 2 tab Documented by: TOMASA Vital Signs Vital signs: Vital Signs - 8 hr 08/06/19 13:06 08/06/19 15:56 Temperature 97.2 F L Pulse Rate 77 64 Respiratory Rate 13 16 Blood Pressure 159/99 H Blood Pressure [Right Arm] 156/101 H Pulse Oximetry 99 98 MDM - Fall <SANDRO Wheeler - Last Filed: 08/06/19 20:13> Lab Data Result diagrams: 08/06/19 13:31 08/06/19 13:31 Labs: Lab Results 08/06/19 08/06/19 08/06/19 Range/Units 13:31 13:31 13:31 WBC 8.4 (4.5-11.0) X10^3/uL RBC 3.71 L (4.0-5.2) X10^6/uL Hgb 12.8 (12.0-16.0) g/dL Hct 38.3 (36-46) % MCV 103.3 H (80-100) fL MCH 34.5 H (26-34) PG MCHC 33.4 (30-36) % RDW 15.1 H (11.6-14.8) % Plt Count 181 (150-400) X10^3/uL Neut % (Auto) 74.4 (50-75) % Lymph % (Auto) 18.6 L (25-40) % [place] % (Auto) 5.6 (3-14) % Eos % (Auto) 0.9 L (2-4) % Baso % (Auto) 0.5 (0-2) % Neut # (Auto) 6200 (0030-4647) /uL Lymph # (Auto) 1600 (1204-4179) /uL [place] # (Auto) 500 (0-900) /uL Eos # (Auto) 100 (0-450) /uL Baso # (Auto) 0 (0-100) /uL Sodium 137 (137-145) mmol/L Potassium 4.3 (3.4-5.1) mmol/L Chloride 103 (98-107) mmol/L Carbon Dioxide 27 (22-32) mmol/L BUN 14 (7-17) mg/dL Creatinine 0.60 (0.52-1.04) mg/dL Estimated GFR > 60.0 (>60) mL/min BUN/Creatinine Ratio 23.3 H (6-22) Glucose 119 H (70-100) mg/dL Calcium 9.7 (8.4-10.2) mg/dL Total Creatine Kinase 76 (30-135) U/L CK-MB (CK-2) TNP CK-MB (CK-2) Rel Index TNP Ethyl Alcohol ( - 10) mg/dL 08/06/19 Range/Units 13:31 WBC (4.5-11.0) X10^3/uL RBC (4.0-5.2) X10^6/uL Hgb (12.0-16.0) g/dL Hct (36-46) % MCV (80-100) fL MCH (26-34) PG MCHC (30-36) % RDW (11.6-14.8) % Plt Count (150-400) X10^3/uL Neut % (Auto) (50-75) % Lymph % (Auto) (25-40) % [place] % (Auto) (3-14) % Eos % (Auto) (2-4) % Baso % (Auto) (0-2) % Neut # (Auto) (4988-5619) /uL Lymph # (Auto) (6248-6420) /uL [place] # (Auto) (0-900) /uL Eos # (Auto) (0-450) /uL Baso # (Auto) (0-100) /uL Sodium (137-145) mmol/L Potassium (3.4-5.1) mmol/L Chloride (98-107) mmol/L Carbon Dioxide (22-32) mmol/L BUN (7-17) mg/dL Creatinine (0.52-1.04) mg/dL Estimated GFR (>60) mL/min BUN/Creatinine Ratio (6-22) Glucose (70-100) mg/dL Calcium (8.4-10.2) mg/dL Total Creatine Kinase (30-135) U/L CK-MB (CK-2) CK-MB (CK-2) Rel Index Ethyl Alcohol < 10 ( - 10) mg/dL Imaging Data Extremity ultrasound: Radiologist's impression: Garima Butts 49 F 1970 [place] [address] Ultrasound Report Signed Patient: Garima Butts MMR#: [id number] : 1970Acct:[id number] Age/Sex: 49 / FDate of Service: 08/06/19 Loc: ED Accession Number: [id number] Procedure: US extremity nonvasc lower rt Ordering Provider: Cinthya Alcantara [facility]- PROCEDURE: US EXTREMITY NONVASC LOWER RT INDICATIONS: PALPABLE MASS, POST TRAUMA, ?HEMATOMA TECHNIQUE: Real-time scanning was performed of the right buttock, with image documentation. COMPARISON: None. FINDINGS: Multiple grayscale and color Doppler images of the right buttock region were acquired over the area of palpable concern. There is an avascular, heterogeneous collection measuring approximately 13.4 x 2.9 x 13.4 cm. Scattered, heterogeneous internal debris and thin lacelike septations. IMPRESSION: 13.4 cm heterogeneous, avascular collection underlying the right buttocks region correlating with palpable area of patient concern. This likely represents a hematoma or other complicated fluid collection given reported history of trauma. Recommend continued clinical surveillance and consideration for followup imaging to document resolution. Preliminary findings were reported to Dr. Alcantara by the echocardiography radiology technologist at 1440 hrs. Dictated by: Cali Pichardo M.D. on 08/06/2019 at 15:06 Approved by: Cali Pichardo M.D. on 08/06/2019 at 15:11 Sacrum coccyx x-ray: Radiologist's impression: [address] [address] XRay Report Signed Patient: Garima Butts MMR#: [id number] : 1970Acct:[id number] Age/Sex: 49 / FDate of Service: 08/06/19 Loc: ED Accession Number: [id number] Procedure: XR sacrum coccyx min 2V Ordering Provider: Cinthya Alcantara PROCEDURE: XR SACRUM COCCYX MIN 2V INDICATIONS: fell down 13 steps, point tender over sacrum and right hip. TECHNIQUE: 3 views of the sacrum and coccyx acquired. COMPARISON: [facility], , XR HIP W PEL IF DONE RT 2V, 08/06/2019, 13:53. FINDINGS: Bones: No fractures or dislocations. No suspicious bony lesions. Soft tissues: Visualized bowel gas pattern is normal. No suspicious soft tissue densities. IMPRESSION: No visualized acute fracture or dislocation. However, if clinical concern and/or pain persist, short interval imaging followup in 7-10 days is recommended, as occult injury cannot be definitively excluded. Dictated by: Tamra Baxter M.D. on 08/06/2019 at 14:15 Approved by: Tamra Baxter M.D. on 08/06/2019 at 14:16 Hip x-ray: Radiologist's impression: [address] [address] XRay Report Signed Patient: Garima Butts MMR#: [id number] : 1970Acct:[id number] Age/Sex: 49 / FDate of Service: 08/06/19 Loc: ED Accession Number: [id number] Procedure: XR hip w pel if done RT 2V Ordering Provider: Cinthya Alcantara PROCEDURE: XR HIP W PEL IF DONE RT 2V INDICATIONS: fell down 13 steps, point tender over sacrum and right hip. TECHNIQUE: AP pelvis with lateral view(s) of the right hip(s). COMPARISON: None. FINDINGS: Bones: No fractures or dislocations. Pelvic ring appears intact. No suspicious bony lesions. Soft tissues: The visualized bowel gas pattern is normal. No suspicious soft tissue calcifications. IMPRESSION: No visualized acute fracture or dislocation. However, if clinical concern and/or pain persist, short interval imaging followup in 7-10 days is recommended, as occult injury cannot be definitively excluded. Dictated by: Tamra Baxter M.D. on 08/06/2019 at 14:11 Approved by: Tamra Baxter M.D. on 08/06/2019 at 14:15 [facility] Narrative Medical decision making narrative: The patient is a 49 year old female who presents 15 days after a fall down the stairs. She was out of trauma criteria window. She denies any loss of consciousness, denies any neck pain on evaluation. She is sent from the walk-in clinic for the possibility of a posttraumatic mass in her right buttock. X-rays were obtained of sacrum, coccyx and hip. These came back negative for any acute fractures. Ultrasound shows a hematoma of her buttock. I did give her pain medications, which she states make the pain more manageable. She does have a history of drinking alcohol, so I discussed at length the fact that she cannot combine the 2. I encouraged follow-up with her primary care provider gave her contact information [facility][1]. Discussed come back to the emergency department for any acute concerns such as incontinence of bowel, incontinence of bladder saddle anesthesia. Patient has been hemodynamically stable throughout her stay in the emergency department. She states understanding of return precautions as well as follow-up care. No questions or concerns upon discharge. <Maciej Montero, DO - Last Filed: 08/09/19 06:57> Lab Data Labs: Lab Results 08/06/19 08/06/19 08/06/19 Range/Units 13:31 13:31 13:31 WBC 8.4 (4.5-11.0) X10^3/uL RBC 3.71 L (4.0-5.2) X10^6/uL Hgb 12.8 (12.0-16.0) g/dL Hct 38.3 (36-46) % MCV 103.3 H (80-100) fL MCH 34.5 H (26-34) PG MCHC 33.4 (30-36) % RDW 15.1 H (11.6-14.8) % Plt Count 181 (150-400) X10^3/uL Neut % (Auto) 74.4 (50-75) % Lymph % (Auto) 18.6 L (25-40) % [place] % (Auto) 5.6 (3-14) % Eos % (Auto) 0.9 L (2-4) % Baso % (Auto) 0.5 (0-2) % Neut # (Auto) 6200 (2515-5988) /uL Lymph # (Auto) 1600 (2808-8842) /uL [place] # (Auto) 500 (0-900) /uL Eos # (Auto) 100 (0-450) /uL Baso # (Auto) 0 (0-100) /uL Sodium 137 (137-145) mmol/L Potassium 4.3 (3.4-5.1) mmol/L Chloride 103 (98-107) mmol/L Carbon Dioxide 27 (22-32) mmol/L BUN 14 (7-17) mg/dL Creatinine 0.60 (0.52-1.04) mg/dL Estimated GFR > 60.0 (>60) mL/min BUN/Creatinine Ratio 23.3 H (6-22) Glucose 119 H (70-100) mg/dL Calcium 9.7 (8.4-10.2) mg/dL Total Creatine Kinase 76 (30-135) U/L CK-MB (CK-2) TNP CK-MB (CK-2) Rel Index TNP Ethyl Alcohol ( - 10) mg/dL 08/06/19 Range/Units 13:31 WBC (4.5-11.0) X10^3/uL RBC (4.0-5.2) X10^6/uL Hgb (12.0-16.0) g/dL Hct (36-46) % MCV (80-100) fL MCH (26-34) PG MCHC (30-36) % RDW (11.6-14.8) % Plt Count (150-400) X10^3/uL Neut % (Auto) (50-75) % Lymph % (Auto) (25-40) % [place] % (Auto) (3-14) % Eos % (Auto) (2-4) % Baso % (Auto) (0-2) % Neut # (Auto) (5336-2717) /uL Lymph # (Auto) (5893-8786) /uL [place] # (Auto) (0-900) /uL Eos # (Auto) (0-450) /uL Baso # (Auto) (0-100) /uL Sodium (137-145) mmol/L Potassium (3.4-5.1) mmol/L Chloride (98-107) mmol/L Carbon Dioxide (22-32) mmol/L BUN (7-17) mg/dL Creatinine (0.52-1.04) mg/dL Estimated GFR (>60) mL/min BUN/Creatinine Ratio (6-22) Glucose (70-100) mg/dL Calcium (8.4-10.2) mg/dL Total Creatine Kinase (30-135) U/L CK-MB (CK-2) CK-MB (CK-2) Rel Index Ethyl Alcohol < 10 ( - 10) mg/dL Discharge Plan Departure Patient Disposition: Home Clinical Impression: Hematoma, Ecchymosis Fall down stairs Qualifiers: Encounter type: initial encounter Qualified Code(s): W10.8XXA - Fall (on) (from) other stairs and steps, initial encounter Discharge Date/Time: 08/06/19 15:59 Instructions: DI for Contusion, DI for Hematoma (Bruise), How to Prevent Falls Activity Restrictions/Additional Instructions: Today we did pictures of your hip, coccyx and sacrum. These x-rays show no acute fracture in your weight-bearing well. The ultrasound shows a large hematoma. It is important that you follow-up with a primary care provider in the next few days for re-evaluation. I have given you contact information for the [facility] health human resource manager, who can help you identify a primary care provider. I have given you a prescription of Toradol. This is an NSAID. Do not combine it with other NSAIDs such as Aleve or ibuprofen. I suggest taking it with some food, as it can irritate your stomach. Please come back to emergency department for any acute concerns such as concern of chest pain, shortness of breath or neurological changes. I have also given you a prescription of Vernon, this can be constipating and sedating. Do not take it with alcohol or any other sedating agents. This can kill you. Be aware that there is acetaminophen and Vernon, so be cautious if you take any extra acetaminophen P Prescriptions: New ketorolac 10 mg tablet 10 mg PO TID PRN (Reason: pain) Qty: 15 RF: 0 hydrocodone-acetaminophen [Vernon] 5-325 mg tablet 1 tab PO Q4-6H PRN (Reason: pain) Qty: 7 RF: 0 No Action epinephrine [EpiPen 2-Montrell] 0.3 mg/0.3 mL auto-injector 0.3 mg IM Q10M PRN (Reason: nut allergy/anaphylaxis) Qty: 1 RF: 0 Referrals: [facility] [Outside] <Maciej Montero, - Last Filed: 08/09/19 06:57> Sign Out Provider Sign Out Attestation: I was available for consultation during this patient's emergency department visit. This chart is signed by myself for administrative purposes only. I did not have direct contact with this patient during this visit. They were seen independently by the APC.
[2019-08-06 15:56] VITALS: BP 156/101; PULSE 64; RESP 16; O2SAT 98
== END 2019-08-06 15:59 | disposition home or self-care (01) ==
PROVIDERS: Emergency Provider Nurse Practitioner Family
DX: S30.0XXA Contusion of lower back and pelvis, initial encounter (principal); R58 Hemorrhage, not elsewhere classified; X58.XXXA Exposure to other specified factors, initial encounter; T14.8XXA Other injury of unspecified body region, initial encounter; W10.8XXA Fall (on) (from) other stairs and steps, initial encounter
CPT/HCPCS: 36415; 72220; 73502; 76882; 80048; 80320; 82550; 85025; 99283; 99284

== ENCOUNTER → 2021-01-28 17:23 | Outpatient (CLI) | payer OTHER, MEDICAID, SELFPAY ==
--- NOTE | 2021-01-28 17:28 | DI.RAD.S_ITS ---
PROCEDURE: XR CERVICAL SPINE 2V OR 3V INDICATIONS: neck pain/reduced ROM/spasm TECHNIQUE: 3 view(s) of the cervical spine were acquired. COMPARISON: None. FINDINGS: Bones: No fractures or dislocations to the C7-T1 level. Degenerative endplate changes are noted at C3-4 through C6-7 levels. The lateral masses of C1 appear intact on the odontoid view. No suspicious bony lesions. Soft tissues: No prevertebral soft tissue swelling. IMPRESSION: Degenerative disc disease throughout cervical spine. No acute cervical spine fracture or dislocation. Dictated by: Mikey Livingston M.D. on 01/28/2021 at 16:48 Approved by: Mikey Livingston M.D. on 01/28/2021 at 16:48
== END ==
PROVIDERS: Referring Provider Student in an Organized Health Care Education/Training Program; Visit Provider Student in an Organized Health Care Education/Training Program
DX: M50.31 Other cervical disc degeneration, high cervical region (principal)
CPT/HCPCS: 72040

== ENCOUNTER → 2021-02-21 13:16 | Outpatient (CLI) | payer OTHER, MEDICAID, SELFPAY | PROVIDERS: Referring Provider Student in an Organized Health Care Education/Training Program; Visit Provider Student in an Organized Health Care Education/Training Program | DX: R30.0 Dysuria (principal); R35.0 Frequency of micturition | CPT/HCPCS: 87077; 87086; 87186 ==

== ENCOUNTER 2021-06-23 18:41 | Emergency (ER) | payer OTHER, MEDICAID, SELFPAY ==
[2021-06-23] VITALS (21 sets, daily range): BP systolic 119–180; BP diastolic 65–113; PULSE 78–111; RESP 12–54; O2SAT 90–100; BMI 24.6
--- NOTE | 2021-06-23 18:44 | ED.ALLEREA ---
HPI - Allergic Reaction General Chief complaint: Allergic Reaction Stated complaint: Anaphalaxis Time Seen by Provider: 06/23/21 18:43 Source: patient and EMS Mode of arrival: EMS Limitations: no limitations History of Present Illness HPI narrative: This is a 51-year-old female comes with anaphylaxis type symptoms. Patient was at a work office libertarian. She has a known allergy to tree nuts and sesame seeds and ingested food switch potentially had not been them. Patient developed tightness in her throat, feeling of swelling in her throat and lower face she states she did not have any swelling of her tongue. She states the back of her throat chills feels sort of painful and irritated. She denies any rash or pruritus. She has been nauseated but has not been actively vomiting. She has not had diarrhea. She does not feel wheezy currently. Patient received 0.3 of epinephrine at the scene and additional 0.5 in transport along with 25 mg of Benadryl IV. Patient states she feels somewhat improved but not normal and will feel some discomfort in her posterior throat. Patient denies other daily medications. She states she has never been intubated for episodes. She states she does not normally caring EpiPen. Patient states she has had some alcohol this evening as well. Related Data Previous Rx's Medication Instructions Recorded epinephrine 0.3 mg/0.3 mL 0.3 mg IM Q10M PRN #1 each 10/27/18 injection, auto-injector (EpiPen 2-Montrell) epinephrine 0.3 mg/0.3 mL 0.3 mg IM Q5-15M PRN #2 ea 06/23/21 injection, auto-injector (EpiPen 2-Montrell) famotidine 20 mg tablet (Pepcid) 20 mg PO BID #10 tab 06/23/21 prednisone 50 mg tablet 50 mg PO DAILY #5 tab 06/23/21 Allergies Allergy/AdvReac Type Severity Reaction Status Date / Time sesame oil Allergy Severe Anaphylaxis Verified 02/21/21 13:14 sesame seed Allergy Severe Anaphylaxis Verified 02/21/21 13:14 NUTS Allergy Unknown Uncoded 02/21/21 13:14 Review of Systems Review of Systems ROS Unobtainable: All systems reviewed & are unremarkable except as noted in HPI and below Patient History Medical History Anaphylaxis Family History Other Family history non-contributory Social History Smoking Status: Current every day smoker Smoking Status: Former smoker alcohol intake frequency: 0-2 drinks per day Substance Use Type: marijuana Exam Initial Vital Signs Initial Vital Signs: Vital Signs Pulse Rate 101 H 06/23/21 18:45 Respiratory Rate 26 H 06/23/21 18:45 Pulse Oximetry 97 06/23/21 18:45 GEN: well nourished, well appearing female, alert and oriented x 3, patient appears to be in moderate distress. Patient is anxious all and occasional tearful. HEENT: Atraumatic, pupils are equal round reactive to light, extraocular movements are intact, nares are clear, TMs are clear with no fluid, there is no conjunctival pallor. Throat is clear without any exudates, erythema, tonsillar enlargement or uvular deviation, no facial swelling appreciated. HEART: Mildly tachycardic but Regular rate and rhythm without murmur, clicks, rubs. LUNGS:Lungs clear to auscultation, no wheezes, rales, crackles, chest moves symmetrically ABD:bowel sounds normal, soft, non-tender, no guarding, rebound, rigidity, no masses noted, no hepatosplenomegaly MSCL: Non-tender, no muscle atrophy, muscles strength 5/5 upper and lower extremities, full range of motion, normal gait NEURO:CN 2-12 intact, sensation normal SKIN: Rash, erythema or other skin changes noted. Course Orders Ordered: Discontinued Medications Diphenhydramine HCl (Diphenhydramine 50 Mg/Ml Vial) 25 mg IV NOW ONE Stop: 06/23/21 18:44 Last Admin: 06/23/21 18:46 Dose: 25 mg Documented by: SUSANNAH Famotidine (Famotidine 20 Mg/2 Ml Vial) 20 mg IV NOW ONE Stop: 06/23/21 18:44 Last Admin: 06/23/21 18:47 Dose: 20 mg Documented by: SUSANNAH Sodium Chloride (Normal Saline 0.9%) 1,000 mls @ 1,000 mls/hr IV BOLUS ONE Stop: 06/23/21 19:42 Last Infusion: 06/23/21 20:03 Dose: 0 mls/hr Documented by: Admin: 06/23/21 18:45 Dose: 1,000 mls/hr Documented by: SUSANNAH Methylprednisolone (Methylprednisolone 125 Mg/2 Ml Vial) 125 mg IV NOW ONE Stop: 06/23/21 18:44 Last Admin: 06/23/21 18:46 Dose: 125 mg Documented by: SUSANNAH Ondansetron HCl (Ondansetron 4 Mg/2 Ml Inj) 4 mg IV Q6HR PRN PRN Reason: Nausea And Vomiting Last Admin: 06/23/21 18:47 Dose: 4 mg Documented by: SUSANNAH Vital Signs Vital signs: Vital Signs - 8 hr 06/23/21 20:00 06/23/21 20:12 06/23/21 20:30 Pulse Rate 97 H 101 H 105 H Respiratory Rate 12 30 H Blood Pressure 119/65 Pulse Oximetry 93 96 94 06/23/21 21:00 06/23/21 21:30 06/23/21 22:00 Pulse Rate 98 H 99 H 89 Respiratory Rate 17 26 H Blood Pressure Pulse Oximetry 90 L 96 94 06/23/21 22:31 06/23/21 23:00 06/23/21 23:08 Pulse Rate 83 78 89 Respiratory Rate 32 H 23 Blood Pressure Pulse Oximetry 95 96 97 06/23/21 23:17 Pulse Rate Respiratory Rate Blood Pressure 129/74 Pulse Oximetry MDM - Allergic Reaction MDM Narrative Medical decision making narrative: This is a 51 year old female who had exposure to nuts with known tree nut allergy. Patient has swelling sensation in her throat. Patient had improvement with epinephrine prior to arrival and then recurrence of symptoms. She received two additional doses, solumedrol and pepcid and had improvement. Patient observed for 4-5 additional hours. Patient requesting to leave and feels significantly better. After long discussion patient feels comfortable returning home. Prescription for EpiPen, steroids and Pepcid was given. Discussed with patient she needs to have an EpiPen available to her at all times. Discharge Plan Departure Patient Disposition: Home Clinical Impression: Anaphylaxis Instructions: DI for Anaphylaxis Activity Restrictions/Additional Instructions: Follow-up for recheck if you have any additional concerns. You do need to carry an EpiPen with you at all times. These need to be replaced yearly as they are not proven to be effective after they . Continue prednisone once daily x5 days. Take Pepcid 1 tablet twice daily x5 days. These medications are to prevent rebound symptoms. Start these in the morning. You may take Benadryl 1-2 tablets every 6 hours if you have any minor symptoms. Prescription for EpiPen was sent to [facility]. Please return for new or worsening symptoms, recurrent symptoms, swelling of her lips, mouth or airway, shortness of breath, chest pain, lightheadedness or passing out, persistent vomiting, rash or itchiness or other new or concerning symptoms. Prescriptions: New prednisone 50 mg tablet 50 mg PO DAILY Qty: 5 RF: 0 epinephrine [EpiPen 2-Montrell] 0.3 mg/0.3 mL auto-injector 0.3 mg IM Q5-15M PRN (Reason: anaphylaxis) Qty: 2 RF: 0 famotidine [Pepcid] 20 mg tablet 20 mg PO BID Qty: 10 RF: 0 No Action epinephrine [EpiPen 2-Montrell] 0.3 mg/0.3 mL auto-injector 0.3 mg IM Q10M PRN (Reason: nut allergy/anaphylaxis) Qty: 1 RF: 0 Referrals: Miscellaneous,Doctor, MD [Primary Care Provider] -
[2021-06-23] MEDS: SODIUM CHLORIDE 0.9% 1,000 ML 1000 ML IV (18:45)
[2021-06-23] MEDS: methylPREDNISolone 125 MG/2 ML VIAL IV (18:46)
[2021-06-23] MEDS: diphenhydrAMINE 50 MG/ML VIAL 25 MG IV (18:46)
[2021-06-23] MEDS: FAMOTIDINE 20 MG/2 ML VIAL IV (18:47)
[2021-06-23] MEDS: ONDANSETRON 4 MG/2 ML INJ IV (18:47)
[2021-06-23] MEDS: EPINEPHrine 1 MG/ML (18:51)
--- NOTE | 2021-06-23 19:10 | PC.NURSE ---
Patient reports improvement with breathing and not feeling like she's choking.
== END 2021-06-23 23:28 | disposition home or self-care (01) ==
PROVIDERS: Emergency Provider Emergency Medicine
DX: T78.05XA Anaphylactic reaction due to tree nuts and seeds, initial encounter (principal)
CPT/HCPCS: 96361; 96374; 96375; 99283; 99284; J0171; J1200; J2405; J2930

== ENCOUNTER 2023-05-11 11:06 | Emergency (ER) | payer SELFPAY ==
[2023-05-11] VITALS (14 sets, daily range): BP systolic 116–192; BP diastolic 60–91; PULSE 68–143; RESP 14–28; TEMP 36.8; O2SAT 94–97; BMI 27.4
[2023-05-11] MEDS: FAMOTIDINE 20 MG/2 ML VIAL IV (11:15)
[2023-05-11] MEDS: methylPREDNISolone 125 MG/2 ML VIAL IV (11:16)
--- NOTE | 2023-05-11 11:20 | PC.NURSE ---
Pt took Benadryl right before coming to the ED.
--- NOTE | 2023-05-11 11:26 | ED.ALLEREA ---
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 She was at work her symptoms came on all of a sudden, she had shortness of breath, itching all over, anxiety, states that her heart is racing and her mouth and throat feel dry and itchy. She denies wheezing sensation, denies fever or chills or recent illness. States she has not consumed anything but can have allergies without consumption, it can be an odor or contact. She have an EpiPen, she took 50 mg of Benadryl prior to arrival. Related Data Previous Rx's Medication Instructions Recorded epinephrine 0.3 mg/0.3 mL 0.3 mg (0.3 mL) IM Q10M PRN nut 10/27/18 injection, auto-injector (EpiPen allergy/anaphylaxis #1 ea 2-Montrell) epinephrine 0.3 mg/0.3 mL 0.3 mg (0.3 mL) IM Q5-15M PRN 06/23/21 injection, auto-injector (EpiPen anaphylaxis #2 ea 2-Montrell) famotidine 20 mg tablet (Pepcid) 20 mg PO BID #10 tabs 06/23/21 prednisone 50 mg tablet 50 mg PO DAILY #5 tabs 06/23/21 cetirizine 10 mg tablet 10 mg PO DAILY PRN allergy 05/11/23 symptoms #30 tabs epinephrine 0.3 mg/0.3 mL 0.3 ml IM Q5-15M PRN anaphylaxis 05/11/23 injection, auto-injector (EpiPen) #2 ea famotidine 20 mg tablet 20 mg PO DAILY 7 days #14 tabs 05/11/23 Allergies Allergy/AdvReac Type Severity Reaction Status Date / Time sesame oil Allergy Severe Anaphylaxis Verified 05/11/23 11:13 sesame seed Allergy Severe Anaphylaxis Verified 05/11/23 11:13 NUTS Allergy Unknown Uncoded 02/21/21 13:14 Review of Systems <OLU Treviño - Last Filed: 05/11/23 13:57> Review of Systems ROS Unobtainable: All systems reviewed & are unremarkable except as noted in HPI and below Patient History <OLU Treviño - Last Filed: 05/11/23 13:57> Medical History Anaphylaxis Family History Other Family history non-contributory Social History Smoking Status: Current every day smoker Smoking Status: Current every day smoker tobacco type: cigarettes alcohol intake frequency: a few times a week Substance Use Type: marijuana Exam <OLU Terviño - Last Filed: 05/11/23 13:57> Narrative Exam Narrative: Reviewed vitals signs and nursing notes. General: Pleasant, sitting upright, in no acute distress, well groomed, afebrile HEENT: symmetrical facial expressions, moist mucous membranes, neck is supple CV: tachycardic rate and regular rhythm, warm extremities Respiratory: normal work of breathing, without tachypnea or hypoxia. GI: abdomen soft, nondistended, without CVA tenderness bilaterally. MSK: moves all extremities, no weakness, normal tone, ambulatory without deficit Skin: brisk capillary refill, without rash or wound Neuro: clear speech and normal cognition, A&O x3, GCS 15, no focal motor or sensation deficits Initial Vital Signs Initial Vital Signs: Vital Signs Temperature 98.3 F 05/11/23 11:06 Pulse Rate 138 H 05/11/23 11:06 Respiratory Rate 05/11/23 11:06 Blood Pressure 192/81 H 05/11/23 11:06 Pulse Oximetry 96 05/11/23 11:06 Oxygen Delivery Method Room Air 05/11/23 11:06 <Peter Llamas DO - Last Filed: 05/13/23 08:44> Initial Vital Signs Initial Vital Signs: Vital Signs Temperature 98.3 F 05/11/23 11:06 Pulse Rate 138 H 05/11/23 11:06 Respiratory Rate 05/11/23 11:06 Blood Pressure 192/81 H 05/11/23 11:06 Pulse Oximetry 96 05/11/23 11:06 Oxygen Delivery Method Room Air 05/11/23 11:06 Course <Loni Erickson [facility] - Last Filed: 05/11/23 13:57> Orders Ordered: Discontinued Medications Epinephrine HCl (Epinephrine 1 Mg/Ml) 0.3 mg IM NOW ONE Stop: 05/11/23 11:24 Last Admin: 05/11/23 11:41 Dose: 0.3 mg Documented By: PHOENIX Famotidine (Famotidine 20 Mg/2 Ml Vial) 20 mg IV NOW HENRY Last Admin: 05/11/23 11:15 Dose: 20 mg Documented By: PHOENIX Famotidine (Famotidine 20 Mg/2 Ml Vial) 20 mg IV NOW [facility] Sodium Chloride (Normal Saline 0.9%) 1,000 mls @ 1,000 mls/hr IV BOLUS ONE Stop: 05/11/23 12:27 Last Infusion: 05/11/23 13:27 Dose: 0 mls/hr Documented By: Admin: 05/11/23 11:30 Dose: 1,000 mls/hr Documented By: PHOENIX Lorazepam (Lorazepam 2 Mg/Ml Inj) 0.5 mg IV NOW ONE Stop: 05/11/23 11:24 Last Admin: 05/11/23 11:39 Dose: 0.5 mg Documented By: PHOENIX Methylprednisolone (Methylprednisolone 125 Mg/2 Ml Vial) 125 mg IV NOW ONE Stop: 05/11/23 11:12 Last Admin: 05/11/23 11:16 Dose: 125 mg Documented By: PHOENIX Methylprednisolone (Methylprednisolone 125 Mg/2 Ml Vial) 125 mg IV NOW ONE Stop: 05/11/23 11:24 Last Admin: 05/11/23 12:08 Dose: Not Given Documented By: PHOENIX Consultations Additional Consultation(s): Safety stop Called at 11:15. Nursing initiated orders included epinephrine 1 mg dose for administration in order set, RN had medication ready but was not given. Famotidine and Solu-Medrol were already given based on the order set. Discussed dosing to include 0.3 mg x 1 IM now for anaphylaxis without shock. Patient is quite anxious, she does not have wheezing, no stridor, she does have urticaria and tachycardia , no angioedema, no hypotension Vital Signs Vital signs: Vital Signs - 8 hr 05/11/23 11:06 05/11/23 11:09 05/11/23 11:09 Temperature 98.3 F Pulse Rate 138 H 143 H Respiratory Rate 23 Blood Pressure 192/81 H 192/91 H Pulse Oximetry 96 97 Oxygen Delivery Method Room Air 05/11/23 11:30 05/11/23 11:34 05/11/23 11:34 Temperature Pulse Rate 134 H 112 H Respiratory Rate 28 H 24 Blood Pressure 136/71 Pulse Oximetry 95 96 Oxygen Delivery Method 05/11/23 11:41 05/11/23 11:41 05/11/23 11:44 Temperature Pulse Rate 103 H 99 H Respiratory Rate 23 19 Blood Pressure 126/80 Pulse Oximetry 94 96 Oxygen Delivery Method 05/11/23 11:44 05/11/23 11:45 05/11/23 11:45 Temperature Pulse Rate 96 H Respiratory Rate 20 Blood Pressure 140/70 136/64 Pulse Oximetry 95 Oxygen Delivery Method 05/11/23 12:00 05/11/23 12:00 05/11/23 12:15 Temperature Pulse Rate 82 Respiratory Rate 20 Blood Pressure 142/75 H 135/70 Pulse Oximetry 96 Oxygen Delivery Method 05/11/23 12:15 05/11/23 12:30 05/11/23 12:30 Temperature Pulse Rate 84 73 Respiratory Rate 22 16 Blood Pressure 123/64 Pulse Oximetry 95 95 Oxygen Delivery Method 05/11/23 12:45 05/11/23 12:45 05/11/23 13:00 Temperature Pulse Rate 68 88 Respiratory Rate 17 18 Blood Pressure 118/62 Pulse Oximetry 95 95 Oxygen Delivery Method 05/11/23 13:09 05/11/23 13:09 05/11/23 13:15 Temperature Pulse Rate 76 Respiratory Rate 14 Blood Pressure 116/60 125/65 Pulse Oximetry 96 Oxygen Delivery Method 05/11/23 13:15 Temperature Pulse Rate 74 Respiratory Rate 19 Blood Pressure Pulse Oximetry 94 Oxygen Delivery Method <Peter Llamas, DO - Last Filed: 05/13/23 08:44> Orders Ordered: Discontinued Medications Epinephrine HCl (Epinephrine 1 Mg/Ml) 0.3 mg IM NOW ONE Stop: 05/11/23 11:24 Last Admin: 05/11/23 11:41 Dose: 0.3 mg Documented By: PHOENIX Famotidine (Famotidine 20 Mg/2 Ml Vial) 20 mg IV NOW HENRY Last Admin: 05/11/23 11:15 Dose: 20 mg Documented By: PHOENIX Famotidine (Famotidine 20 Mg/2 Ml Vial) 20 mg IV NOW HENRY Sodium Chloride (Normal Saline 0.9%) 1,000 mls @ 1,000 mls/hr IV BOLUS ONE Stop: 05/11/23 12:27 Last Infusion: 05/11/23 13:27 Dose: 0 mls/hr Documented By: Admin: 05/11/23 11:30 Dose: 1,000 mls/hr Documented By: PHOENIX Lorazepam (Lorazepam 2 Mg/Ml Inj) 0.5 mg IV NOW ONE Stop: 05/11/23 11:24 Last Admin: 05/11/23 11:39 Dose: 0.5 mg Documented By: PHOENIX Methylprednisolone (Methylprednisolone 125 Mg/2 Ml Vial) 125 mg IV NOW ONE Stop: 05/11/23 11:12 Last Admin: 05/11/23 11:16 Dose: 125 mg Documented By: PHOENIX Methylprednisolone (Methylprednisolone 125 Mg/2 Ml Vial) 125 mg IV NOW ONE Stop: 05/11/23 11:24 Last Admin: 05/11/23 12:08 Dose: Not Given Documented By: PHOENIX Vital Signs Vital signs: Vital Signs - 8 hr 05/11/23 11:06 05/11/23 11:09 05/11/23 11:09 Temperature 98.3 F Pulse Rate 138 H 143 H Respiratory Rate 23 Blood Pressure 192/81 H 192/91 H Pulse Oximetry 96 97 Oxygen Delivery Method Room Air 05/11/23 11:30 05/11/23 11:34 05/11/23 11:34 Temperature Pulse Rate 134 H 112 H Respiratory Rate 28 H 24 Blood Pressure 136/71 Pulse Oximetry 95 96 Oxygen Delivery Method 05/11/23 11:41 05/11/23 11:41 05/11/23 11:44 Temperature Pulse Rate 103 H 99 H Respiratory Rate 23 19 Blood Pressure 126/80 Pulse Oximetry 94 96 Oxygen Delivery Method 05/11/23 11:44 05/11/23 11:45 05/11/23 11:45 Temperature Pulse Rate 96 H Respiratory Rate 20 Blood Pressure 140/70 136/64 Pulse Oximetry 95 Oxygen Delivery Method 05/11/23 12:00 05/11/23 12:00 05/11/23 12:15 Temperature Pulse Rate 82 Respiratory Rate 20 Blood Pressure 142/75 H 135/70 Pulse Oximetry 96 Oxygen Delivery Method 05/11/23 12:15 05/11/23 12:30 05/11/23 12:30 Temperature Pulse Rate 84 73 Respiratory Rate 22 16 Blood Pressure 123/64 Pulse Oximetry 95 95 Oxygen Delivery Method 05/11/23 12:45 05/11/23 12:45 05/11/23 13:00 Temperature Pulse Rate 68 88 Respiratory Rate 17 18 Blood Pressure 118/62 Pulse Oximetry 95 95 Oxygen Delivery Method 05/11/23 13:09 05/11/23 13:09 05/11/23 13:15 Temperature Pulse Rate 76 Respiratory Rate 14 Blood Pressure 116/60 125/65 Pulse Oximetry 96 Oxygen Delivery Method 05/11/23 13:15 Temperature Pulse Rate 74 Respiratory Rate 19 Blood Pressure Pulse Oximetry 94 Oxygen Delivery Method MDM - Allergic Reaction <OLU Treviño - Last Filed: 05/11/23 13:57> MDM Narrative Medical decision making narrative: Chief Complaint: Anaphylaxis Multiple etiologies for patient's complaint considered including, but not limited to: anaphylaxis, allergic reaction , angioedema hypersensitivity reaction I have independently reviewed the patient's vital signs and reassenursing notes as well as prior records if available. Plan: epinephrine, methylprednisolone, famotidine, IV fluid, reassess reassessed patient at 11:45, she feels much better, no longer tachycardic or anxious, able to take deep breaths, denies urticaria, states that she feels slightly tired, nursing had a staff assist and were unavailable to start IV fluid, I started 1 L normal saline for hydration. Patient is on the air sampling and monitoring, heart rate is in the mid 90s, she feels comfortable. 1245 reassessment patient is resting comfortably, no recurrence of symptoms at this time. 1300, patient requests refills of her EpiPen, states hers were in his [place] use hers at home. She was given a prescription of famotidine and of cetirizine for 2 weeks And two epi pens were prescribed with 3 refills. Patient understands to give herself 1 of the EpiPen if she has shortness of breath, recurrences scratchy throat sensation, or worsening. She understands to return to the emergency department if this happens again and to stay hydrated, she is given a work note to be off work the rest of today and follow-up tomorrow. She was tired but states that she felt much better. Social considerations that may affect disposition: none Questions are addressed and there is agreement with the plan and for follow-up. I consulted with the ED attending physician Dr. Cordova as needed for higher level of care considerations and they were available for discussion and recommendations regarding plan of care and diagnostic testing. Patient is appropriate for outpatient management. Discharge Plan Departure Patient Disposition: Home Clinical Impression: Allergic reaction Qualifiers: Encounter type: initial encounter Qualified Code(s): T78.40XA - Allergy, unspecified, initial encounter Anaphylactic reaction Qualifiers: Encounter type: initial encounter Qualified Code(s): T78.2XXA - Anaphylactic shock, unspecified, initial encounter Instructions: DI for Anaphylaxis Activity Restrictions/Additional Instructions: *You have been diagnosed with Anaphylaxis. You have a strong allergy, sorry for the change in your day. Please keep your EpiPen close in situations like this, the best thing to turn your day around immediately. I am glad you came in, you need the steroid, I hope that you start feeling better soon, please consider taking Zyrtec and famotidine for the next few days. Follow up with your primary care provider, stay hydrated, sorry for your burst of energy and now fatigue. if you feel throat scratchy sensation, please give yourself another epi, I have given you 3 refills, Refill as needed. *What to do: *Please continue to take your regular medications as directed. [ ] New medication prescriptions sent to your pharmacy: [ [facility]] [ ] New medication written as a paper prescription [ x] No new medications given *Please call and schedule follow up with your primary care provider in 2-3 days, at least for an update. Let them know you were seen in the Emergency Department for the above problem. We will electronically transmit a record of today's note if your PCP or specialist is in our system. *If you do not have a primary care provider please contact [phone] to establish care with one of the [facility] primary care providers. *Return to the Emergency Department for worsening symptoms, inability to keep liquids down, fever greater than 101F, chills, or other concerning symptom. Prescriptions: New epinephrine [EpiPen] 0.3 mg/0.3 mL auto-injector 0.3 ml IM Q5-15M PRN (Reason: anaphylaxis) Qty: 2 3RF Rx Instructions: do not exceed 3 doses per episode famotidine 20 mg tablet 20 mg PO DAILY 7 Days Qty: 14 0RF cetirizine 10 mg tablet 10 mg PO DAILY PRN (Reason: allergy symptoms) Qty: 30 0RF No Action epinephrine [EpiPen 2-Montrell] 0.3 mg/0.3 mL auto-injector 0.3 mg IM Q10M PRN (Reason: nut allergy/anaphylaxis) Qty: 1 0RF Rx Instructions: until response prednisone 50 mg tablet 50 mg PO DAILY Qty: 5 0RF epinephrine [EpiPen 2-Montrell] 0.3 mg/0.3 mL auto-injector 0.3 mg IM Q5-15M PRN (Reason: anaphylaxis) Qty: 2 0RF Rx Instructions: do not exceed 3 doses per episode famotidine [Pepcid] 20 mg tablet 20 mg PO BID Qty: 10 0RF Referrals: Miscellaneous,Doctor, MD [Primary Care Provider] - Stand Alone Forms: Patient Portal/API, Work Release Note <Peter Llamas DO - Last Filed: 05/13/23 08:44> Cosign ED Attending Jieature Attestation: I was immediately available in the department for consultation. Documentation has been reviewed. I agree with assessment and plan.
[2023-05-11] MEDS: SODIUM CHLORIDE 0.9% 1,000 ML 1000 ML IV (11:30)
[2023-05-11] MEDS: LORazepam 2 MG/ML INJ 0.5 MG IV (11:39)
[2023-05-11] MEDS: EPINEPHrine 1 MG/ML 0.3 MG IM (11:41)
[2023-05-11] MEDS: EPINEPHrine 1 MG/ML (12:06)
--- NOTE | 2023-05-11 12:23 | PC.NURSE ---
Pt resting quietly, appears comfortable and in no apparent distress. Daughter at the bedside.
== END 2023-05-11 13:30 | disposition home or self-care (01) ==
PROVIDERS: Emergency Provider Nurse Practitioner Critical Care Medicine
DX: T78.05XA Anaphylactic reaction due to tree nuts and seeds, initial encounter (principal)
CPT/HCPCS: 96361; 96372; 96374; 96375; 99283; 99284; J0171; J2060; J2930

== ENCOUNTER → 2023-08-05 12:14 | Outpatient (CLI) | payer OTHER, MEDICAID, SELFPAY ==
--- NOTE | 2023-08-05 12:16 | DI.RAD.S_ITS ---
PROCEDURE: XR ANKLE LT MIN 3V INDICATIONS: Left bilateral malleolar pain after fall last night TECHNIQUE: 3 views of the ankle were acquired. COMPARISON: None. FINDINGS: Bones: No fractures or dislocations. Ankle mortise is normally aligned. No suspicious bony lesions. Moderate calcaneal spur present Soft tissues: No tibiotalar joint effusion. Achilles tendon appears normal. IMPRESSION: No fracture Approved by: Americo Arango M.D. on 08/05/2023 at 13:45
== END ==
PROVIDERS: Referring Provider Physician Assistant; Visit Provider Physician Assistant
DX: M25.473 Effusion, unspecified ankle (principal)
CPT/HCPCS: 73610

== ENCOUNTER 2025-09-25 18:13 | Emergency (ER) | payer OTHER, SELFPAY ==
[2025-09-25 18:21] VITALS: BP 154/70; PULSE 88; RESP 16; TEMP 36.4; O2SAT 98; BMI 29.9
[2025-09-25 22:59] VITALS: BP 171/83; PULSE 71; RESP 18; O2SAT 95
--- NOTE | 2025-09-25 23:00 | PC.NURSE ---
pt was washing dishes when she cut her finger on a broken glass
--- NOTE | 2025-09-25 23:16 | ED_ITS ---
HPI - Wound/Laceration General Chief Complaint: Wound/Laceration Stated Complaint: severe laceration R pinky, bleeding heavily Time Seen by Provider: 09/25/25 23:00 History of Present Illness HPI narrative: 55-year-old female was washing dishes, one of the glasses broke and she placed her hand back in the dish water, cut it on a different broken glass, has laceration to right 5th finger lateral aspect. Believes her last tetanus shot was more than 5 years ago. Does not take blood thinner medications. Related Data Previous Rx's ?Medication ?Instructions ?Recorded cetirizine 10 mg tablet 10 mg PO DAILY PRN allergy 0 05/11/23 symptoms #30 tabs epinephrine 0.3 mg/0.3 mL 0.3 ml IM Q5-15M PRN anaphyl axis 05/11/23 injection, auto-injector (EpiPen) #2 ea silver sulfadiazine 1 % topical 1 applic topical BID # 50 grams 08/07/25 cream (Silvadene) cephalexin 500 mg capsule 500 mg PO QID 7 days #28 cap s 09/26/25 Allergies Allergy/AdvReac Type Severity Reaction Status Date / Time sesame oil Allergy Severe Anaphylaxis Verified 08/07/25 16:34 sesame seed Allergy Severe Anaphylaxis Verified 08/07/25 16:34 NUTS Allergy Unknown Uncoded 08/07/25 16:34 Patient History Medical History Anaphylaxis Family History Other Family history non-contributory tobacco type: cigarettes alcohol intake frequency: a few times a week Exam Narrative Exam Narrative: GENERAL: Well-developed patient, in mild distress. HEAD: Atraumatic. Normocephalic. EYES: Pupils equal round and reactive. Extraocular motions intact. No scleral icterus. No injection or drainage. ENT: Nose without bleeding, purulent drainage. Throat without erythema, tonsillar hypertrophy or exudate. Airway patent. NECK: Trachea midline. Non tender CARDIOVASCULAR: Regular rate and rhythm without murmurs, gallops, or rubs. RESPIRATORY: Clear to auscultation. Breath sounds equal bilaterally. No wheezes, rales, or rhonchi. GASTROINTESTINAL: Abdomen soft, non-tender, nondistended. EXTREMITIES: No edema or joint tenderness. BACK: Nontender without deformity or crepitance. No flank tenderness. NEURO: AOx3. Motor functions grossly nonfocal. SKIN: No rash or erythema of visible areas Initial Vital Signs Initial Vital Signs: Vital Signs Temperature 97.6 F 09/25/25 18:21 Pulse Rate 88 09/25/25 18:21 Respiratory Rate 16 09/25/25 18:21 Blood Pressure 154/70 H 09/25/25 18:21 Pulse Oximetry 98 09/25/25 18:21 Oxygen Delivery Method Room Air 09/25/25 18:21 Procedures Laceration Repair Laceration 1: Time of procedure: 01:03 Site: hand (Right 5th finger) Side (If applicable): right Size (cm): 1.0 Description: linear (Curvilinear flap like) Depth: simple, single layer Local Anesthetic: lidocaine 1% Amount of anesthesia used (mL): 2 Pre-repair: wound explored (Probed and explored, no foreign body visualized or palpable or removed with attempted grasps in small closed up laceration space) Skin layer closed with: nylon Skin layer suture size: 4-0 Number of sutures: 3 Course Orders Ordered: ED Orders 09/25/25 23:17 XR hand RT min 3V Stat 09/26/25 00:10 XR hand RT min 3V Stat 09/26/25 01:01 Consult to [facility] Stat Discontinued Medications Hydrocodone Bitart/Acetaminophen (Hydrocodone/Acet 5/325 Prepack) 1 bottle MISC DIRECTED ONE Stop: 09/26/25 01:02 Last Admin: 09/26/25 01:08 Dose: 1 bottle Documented By: STEFFEN Hydrocodone Bitart/Acetaminophen (Hydrocodone/Acet 5/325 Tablet) 1 tab PO NOW ONE Stop: 09/26/25 01:02 Last Admin: 09/26/25 01:08 Dose: 1 tab Documented By: STEFFEN Cephalexin HCl (Cephalexin 250 Mg Capsule) 500 mg PO NOW ONE Stop: 09/26/25 00:58 Last Admin: 09/26/25 01:08 Dose: 500 mg Documented By: STEFFEN Diphtheria/Tetanus/Acell Pertussis (Tet,Diph,Pertuss(Acell),Vac/Pf 0.5 Ml Syringe) 0.5 ml IM .ONCE ONE Stop: 09/26/25 00:58 Last Admin: 09/26/25 01:09 Dose: 0.5 ml Documented By: STEFFEN Lidocaine HCl (Lidocaine 1% 20 Ml) 20 ml INJ INTRA-OP ONE Stop: 09/25/25 23:52 Last Admin: 09/26/25 00:00 Dose: 20 ml Documented By: STEFFEN Vital Signs Vital signs: Vital Signs - 8 hr 09/25/25 22:59 Pulse Rate 71 Respiratory Rate 18 Blood Pressure 171/83 H Pulse Oximetry 95 Oxygen Delivery Method Room Air MDM - Wound/Laceration MDM Narrative Medical decision making narrative: Washing dishes with broken glass in sink, cut right pinky finger, flap laceration lateral aspect. X-ray initially done with gauze wrapping, possible lateral foreign body material. Digital block performed, irrigation, removal of x-ray wrapping, repeat x-ray showed foreign body versus calcification. On my clinical examination prior to primary closure I could not see or palpate any glass like shard, grasped into the wound with curved hemostat, without any obvious foreign body removal. No obvious fractures. We will presume retained foreign body, though it might be calcification, cover with antibiotics, oral cephalexin dose given, prescription for further cephalexin sent to requested pharmacy. IM Tdap given. Primary closure with simple stitches, see separate procedure note. Wound check advised in the next couple of days, consider Orthopedic surgery Clinic follow up, if exploration of the wound to look for any retained foreign body as indicated. Discharge Plan Departure Patient Disposition: Home Clinical Impression: Finger laceration Instructions: DI for Laceration Repair Activity Restrictions/Additional Instructions: Broken glass laceration to the lateral distal 5th pinky finger. X-ray without fracture but possible retained glass foreign body fragment, 1st imaging with 4 x [address], removed, irrigated, repeat x-ray suspicious for foreign body fragment versus calcification per radiologist's report. On examination I could not visualize or grasp any glass shard like or other foreign material. Possible retained foreign body versus incidental calcification. We will treat with antibiotics for presumed retained foreign body for now. Consider orthopedic surgery consultation in follow up if wound exploration desired. First dose antibiotic given, prescription for further antibiotic sent electronically to your requested pharmacy. Pain medications dispensed, home pack given. Tetanus updated. Follow up with Orthopedic surgery in the next couple of days. Return to this/nearest emergency department for any change worsening symptoms or concerns prior. Prescriptions: New cephalexin 500 mg capsule 500 mg PO QID 7 Days Qty: 28 0RF No Action silver sulfadiazine [Silvadene] 1 % cream 1 applic topical BID Qty: 50 0RF Rx Instructions: apply a 1.5 mm thickness, left 1st, 2nd and 3rd fingers epinephrine [EpiPen] 0.3 mg/0.3 mL auto-injector 0.3 ml IM Q5-15M PRN (Reason: anaphylaxis) Qty: 2 3RF Rx Instructions: do not exceed 3 doses per episode cetirizine 10 mg tablet 10 mg PO DAILY PRN (Reason: allergy symptoms) Qty: 30 0RF Referrals: Miscellaneous,DoctorMD [Primary Care Provider, Medical] Juan Guerra MD [Physician, Orthopedics] Stand Alone Forms: Patient Portal/API
--- NOTE | 2025-09-25 23:17 | DI.RAD.S_ITS ---
PROCEDURE: XR HAND RT MIN 3V INDICATIONS: R fifth finger XRay series TECHNIQUE: 3 views of the hand(s) acquired. COMPARISON: [facility], [place], XR HAND LT MIN 3V, 01/08/2019, 17:16. FINDINGS/IMPRESSION: A couple of radiopaque densities projecting over the ulnar aspect of the 5th middle phalanx head . Differential for this includes radiopaque glass versus chip fractures. These measure 2 mm and 1 mm. Dictated by: Saqib Phillips M.D. on 09/25/2025 at 23:30 Approved by: Saqib Phillips M.D. on 09/25/2025 at 23:31
[2025-09-26] MEDS: LIDOCAINE 1% 20 ML INJ
--- NOTE | 2025-09-26 00:10 | DI.RAD.S_ITS ---
PROCEDURE: XR HAND RT MIN 3V INDICATIONS: injury TECHNIQUE: 3 views of the hand(s) acquired. COMPARISON: [facility], [place], XR HAND RT MIN 3V, 09/25/2025, 23:10. [facility], [place], XR HAND LT MIN 3V, 01/08/2019, 17:16. FINDINGS/IMPRESSION: Persistent radiopaque foreign body versus calcification along the ulnar aspect of the 5th middle phalanx. Dictated by: Saqib Phillips M.D. on 09/26/2025 at 0:33 Approved by: Saqib Phillips M.D. on 09/26/2025 at 0:35
[2025-09-26] MEDS: TET,DIPH,PERTUSS(ACELL),VAC/PF 0.5 ML SYRINGE IM (01:09)
--- NOTE | 2025-09-26 01:44 | PC.NURSE ---
Addendum entered by Deborah Etienne RN 09/26/25 01:50: this dressing was done at 0100 Original Note: washed hand under warm water then marisela applied
== END 2025-09-26 01:15 | disposition home or self-care (01) ==
PROVIDERS: Emergency Provider Emergency Medicine
DX: S61.216A Laceration without foreign body of right little finger without damage to nail, initial encounter (principal); Z23 Encounter for immunization; W25.XXXA Contact with sharp glass, initial encounter
CPT/HCPCS: 12001; 73130; 96372; 99284; 90715